=== PATIENT | male | born 1995 | race Caucasian/White ===

== ENCOUNTER 2020-06-25 19:30 | Emergency (ER) | payer MEDICAID ==
[~2020-06-25] VITALS: Ht 177.8 cm; Wt 77.3 kg
[~2020-06-25 19:30] MED LIST: BACI1PAC7 TP; NO HOME MEDS
[2020-06-25 20:07] LABS: CLARITY,URINE SLIGHTLY CLOUDY (Clear); COLOR,URINE YELLOW (Yellow); GLUCOSE, URINE NEGATIVE (Neg); KETONES,URINE TRACE mg/dl (Neg); LEUKOCYTE ESTERASE ,URINE NEGATIVE (Neg); NITRITES, URINE NEGATIVE (Neg); OCCULT BLOOD,URINE NEGATIVE (Neg); PROTEIN,URINE NEGATIVE (Neg)
[2020-06-25 20:10] LABS: UA COLLECTION TYPE CLN CATCH MIDSTREAM
[2020-06-25 20:14] LABS: AMORPHOUS PHOSPHATES 2+; BACTERIA,URINE NONE SEEN /HPF (Neg); MUCUS STRANDS NONE SEEN /LPF (Neg); RBC,URINE 0-2 /HPF (0-2); SQUAMOUS EPITHELIAL CELL,UR FEW /LPF (FEW); WBC,URINE 0-4 /HPF (0-4)
[2020-06-25 20:47] LABS: BASOPHILS % (AUTO) 0.5 % (0-1); EOSINOPHILS # (AUTO) 0.2 X10'3 (0-0.9); EOSINOPHILS % (AUTO) 3.1 % (0-6); HEMOGLOBIN 14.4 g/dl (14.0-17.9); LYMPHOCYTES # (AUTO) 1.2 X10'3 (1.1-4.8); LYMPHOCYTES % (AUTO) 18.4 % (21-51); MEAN CORPUSCULAR HEMOGLOBIN 30.8 PG (27.0-31.0); MEAN CORPUSCULAR HGB CONC 34.2 g/dL (33.0-36.5); MEAN CORPUSCULAR VOLUME 89.9 FL (78-98); MEAN PLATELET VOLUME 9.2 FL (7.4-10.4); MONOCYTES # (AUTO) 0.3 X10'3 (0-0.9); MONOCYTES % (AUTO) 5.2 % (2-12); NEUTROPHILS # (AUTO) 4.6 X10'3 (1.8-7.7); NEUTROPHILS % (AUTO) 72.8 % (42-75); PLATELET COUNT 191 X10'3 (140-440); RED BLOOD COUNT 4.67 X10'6 (4.70-6.10); RED CELL DISTRIBUTION WIDTH 12.2 % (11.5-14.5); WHITE BLOOD COUNT 6.3 X10'3 (4.5-11.0)
[2020-06-25 20:55] LABS: ALANINE AMINOTRANSFERASE 26 U/L (12-78); ALBUMIN 4.5 G/DL (3.4-5.0); ALBUMIN/GLOBULIN RATIO 1.7 (1.1-1.5); ALKALINE PHOSPHATASE 53 IU/L (46-116); ANION GAP 8 (8-16); ASPARTATE AMINO TRANSFERASE 14 U/L (10-37); BILIRUBIN,TOTAL 1.7 MG/DL (0.1-1.0); BLOOD UREA NITROGEN 9 MG/DL (7-18); BUN/CREATININE RATIO 12.5 (5.4-32.0); CHLORIDE 105 MMOL/L (99-107); CREATININE 0.72 MG/DL (0.60-1.10); GLUCOSE 102 MG/DL (70-104); POTASSIUM 4.3 MMOL/L (3.5-5.1); SODIUM 142 MMOL/L (135-145); TOTAL PROTEIN 7.2 G/DL (6.4-8.2); eGFR > 90 ML/MIN
[2020-06-25 21:34] VITALS: BP 128/88
== END 2020-06-25 21:37 | disposition home or self-care (01) ==
LOC: ER 19:31
DX: T62.8X2A Toxic effect of other specified noxious substances eaten as food, intentional self-harm, initial encounter (principal); R31.9 Hematuria, unspecified; Z79.2 Long term (current) use of antibiotics; Y92.89 Other specified places as the place of occurrence of the external cause
CPT/HCPCS: 36415; 80053; 81001; 85025; 99283

== ENCOUNTER 2020-12-22 14:36 | Emergency (ER) | payer MEDICAID ==
[~2020-12-22] VITALS: Ht 177.8 cm; Wt 72.7 kg
[2020-12-22 14:44] VITALS: BP 123/75
== END 2020-12-23 02:31 | disposition left against medical advice (07) ==
LOC: ER 14:36
DX: R07.0 Pain in throat (principal); Z53.21 Procedure and treatment not carried out due to patient leaving prior to being seen by health care provider

== ENCOUNTER 2021-07-13 08:36 | Outpatient (CLI) | payer MEDICAID | END 2021-07-13 23:59 | disposition home or self-care (01) | LOC: RT 08:36 | PROVIDERS: ATTEND Nurse Practitioner Family | DX: R06.02 Shortness of breath (principal); R00.2 Palpitations | CPT/HCPCS: 94010 ==

== ENCOUNTER 2021-07-31 00:59 | Emergency (ER) | payer MEDICAID ==
[~2021-07-31] VITALS: Ht 182.9 cm; Wt 77.3 kg
[2021-07-31] MEDS ORDERED: AZIT250T2 PO (03:05)
[2021-07-31] MEDS ORDERED: naproxen 500mg tablet PO ONE (03:05)
[2021-07-31] MEDS ORDERED: diphenhydrAMINE 25mg capsule PO ONE (03:05)
[2021-07-31 04:27] VITALS: BP 156/84
== END 2021-07-31 04:28 | disposition home or self-care (01) ==
LOC: ER 00:59
DX: H92.01 Otalgia, right ear (principal); R09.89 Other specified symptoms and signs involving the circulatory and respiratory systems; Z79.2 Long term (current) use of antibiotics; Z79.899 Other long term (current) drug therapy
CPT/HCPCS: 99283; Q0163; 99285

== ENCOUNTER 2021-08-16 00:41 | Emergency (ER) | payer MEDICAID ==
[~2021-08-16] VITALS: Ht 182.9 cm; Wt 77.3 kg
[2021-08-16 00:54] VITALS: BP 104/67
--- NOTE | 2021-08-16 04:03 | NUR ---
Pt left hospital before RN assessed him
== END 2021-08-16 04:05 | disposition home or self-care (01) ==
LOC: ER 00:42
DX: R51.9 Headache, unspecified (principal); Z79.899 Other long term (current) drug therapy
CPT/HCPCS: 99281

== ENCOUNTER 2021-08-16 12:02 | Emergency (ER) | payer MEDICAID ==
[~2021-08-16] VITALS: Ht 180.3 cm; Wt 77.3 kg
[2021-08-16 12:20] VITALS: BP 99/77
== END 2021-08-16 15:31 | disposition home or self-care (01) ==
LOC: ER 12:03
DX: R51.9 Headache, unspecified (principal); R11.0 Nausea; Z79.899 Other long term (current) drug therapy
CPT/HCPCS: 70544; 70551; 99284

== ENCOUNTER 2022-09-18 19:30 | Emergency (ER) | payer MEDICAID ==
[~2022-09-18] VITALS: Ht 177.8 cm; Wt 75.0 kg
[2022-09-18 19:38] VITALS: BP 124/71
[2022-09-18] MEDS ORDERED: SULF1TAB49 PO ×3 (21:19→22:00)
[2022-09-18] MEDS ORDERED: sulfamethoxazole/trimethoprim DS (800/160mg) tablet PO ONE (21:35)
[2022-09-18] MEDS ORDERED: proparacaine 0.5% ophthalmic drops 15ml LEFTEYE ONE (21:35)
[2022-09-18] MEDS ORDERED: ciprofloxacin 0.3% 2.5ml ophthalmic solution LEFTEYE ONE (21:55)
[2022-09-18] MEDS ORDERED: CIPR2.5D21 LEFTEYE ×2 (21:59→22:00)
== END 2022-09-18 22:15 | disposition home or self-care (01) ==
LOC: ER 19:31
DX: S60.551A Superficial foreign body of right hand, initial encounter (principal); S05.02XA Injury of conjunctiva and corneal abrasion without foreign body, left eye, initial encounter; H93.13 Tinnitus, bilateral; W45.8XXA Other foreign body or object entering through skin, initial encounter; Y93.89 Activity, other specified; Y92.89 Other specified places as the place of occurrence of the external cause; Y99.8 Other external cause status
CPT/HCPCS: 73130; 99284

== ENCOUNTER 2023-03-12 07:18 | Outpatient (CLI) | payer MEDICAID ==
[~2023-03-12 07:18] MED LIST changes: +CIPR2.5D21 LEFTEYE; +SULF1TAB49 PO
== END 2023-03-12 23:59 | disposition home or self-care (01) ==
LOC: RT 07:18
PROVIDERS: ATTEND Registered Nurse
DX: J45.20 Mild intermittent asthma, uncomplicated (principal)
CPT/HCPCS: 94010

== ENCOUNTER 2024-10-20 10:23 | Outpatient (CLI) | payer MEDICAID ==
[2024-10-20 11:20] VITALS: PULSE 79; RESP 15; O2SAT 98
== END 2024-10-20 23:59 | disposition home or self-care (01) ==
LOC: RT 10:23
PROVIDERS: ATTEND Nurse Practitioner Family
DX: R06.02 Shortness of breath (principal)
CPT/HCPCS: 94010; 94760; A6258